=== PATIENT | female | born 1940 | race Caucasian/White ===

== ENCOUNTER 2021-12-20 15:04 | Outpatient (REF) | payer MEDICARE, BC, SELFPAY ==
[2021-12-20 18:58] LABS: Abs Immature Grans 0.02 10^3/uL (0.0-0.06); Absolute Basophil Count 0.05 10^3/uL (0.0-0.2); Absolute Eosinophil Count 0.11 10^3/uL (0.0-0.7); Absolute Lymphocyte Count 2.09 10^3/uL (1.2-3.4); Absolute Monocyte Count 0.76 10^3/uL (0.1-0.8); Absolute Neutrophil Count 4.28 10^3/uL (1.2-6.7); Basophils % 0.7; Eosinophils % 1.5; HCT 37.7 % (36.0-46.0); Immature Grans % 0.3; Lymphocytes % 28.6; MCH 26.5 pg (27.0-33.0); MCHC 31.8 % (32.0-36.0); MCV 83 fL (80-95); Monocytes % 10.4; Neutrophils % 58.5; RBC 4.53 10^6/uL (3.93-5.22); RDW 13.1 % (11.7-14.6); RDW-SD 39.3 fL; WBC 7.31 10^3/uL (4.4-10.8)
[2021-12-20 20:05] LABS: Alkaline Phosphatase 62 U/L (46-116); Anion Gap 7.1 mmol/L (3-11); BUN 12 mg/dL (7-18); Bilirubin, Total 0.4 mg/dL (0.2-1.0); CO2 29.9 mmol/L (21.0-32.0); CREATININE 0.9 mg/dL (0.55-1.02); Calcium 9.2 mg/dL (8.5-10.1); Chloride 104 mmol/L (98-107); Estimated GFR 64.63 (mL/min/1.73m2); Glucose 104 mg/dL (74-106); Potassium 4.3 mmol/L (3.5-5.1); Sodium 141 mmol/L (136-145)
[2021-12-20 20:38] LABS: ALT 7 U/L (14-59); AST 18 U/L (15-37)
== END 2021-12-20 15:05 | disposition home or self-care (01) ==
LOC: NCHCN 15:04
PROVIDERS: Visit Provider Family Medicine
DX: G30.1 Alzheimer's disease with late onset (principal); D14.1 Benign neoplasm of larynx; Z00.00 Encounter for general adult medical examination without abnormal findings
CPT/HCPCS: 80053; 84443; 85025

== ENCOUNTER 2022-07-28 13:08 | Outpatient (REF) | payer MEDICARE, BC, SELFPAY | END 2022-07-28 13:09 | disposition home or self-care (01) | LOC: NCHCN 13:08 | PROVIDERS: Visit Provider Family Medicine | DX: N30.00 Acute cystitis without hematuria (principal) | CPT/HCPCS: 87077; 87086; 87186 ==